=== PATIENT | female | born 2000 | race Caucasian/White ===

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

== ENCOUNTER 2020-07-17 11:42 | Emergency (ER) | payer MEDICAID, OTHER ==
[~2020-07-17] VITALS: Ht 170.2 cm; Wt 75.7 kg
[~2020-07-17 11:42] MED LIST changes: +FLUO40CA6 PO
[2020-07-17 11:51] VITALS: BP 126/98
--- NOTE | 2020-07-17 11:53 | NUR ---
Patient ambulated to lobby.
[2020-07-17 14:30] VITALS: BP 115/90
--- NOTE | 2020-07-17 14:30 | NUR ---
Patient discharged with v/s stable. Written and verbal after care instructions given and explained. Patient alert, oriented and verbalized understanding of instructions. Ambulatory with steady gait. All questions addressed prior to discharge. ID band removed. Patient advised to follow up with PMD. Rx of Atarax 25mg given. Patient educated on indication of medication including possible reaction and side effects. Opportunity to ask questions provided and answered.
== END 2020-07-17 14:30 | disposition home or self-care (01) ==
LOC: MED 11:42
DX: F41.0 Panic disorder [episodic paroxysmal anxiety] (principal); J45.909 Unspecified asthma, uncomplicated; Z79.899 Other long term (current) drug therapy; Z90.49 Acquired absence of other specified parts of digestive tract
CPT/HCPCS: 99283

== ENCOUNTER 2021-02-04 20:16 | Emergency (ER) | payer MEDICAID ==
[~2021-02-04] VITALS: Ht 165.1 cm; Wt 87.1 kg
--- NOTE | 2021-02-04 20:16 | NUR ---
CRUZ SYKES. TAKEN TO BED 1
[2021-02-04 20:24] VITALS: BP 137/61
--- NOTE | 2021-02-04 20:28 | NUR ---
PT MOVED TO ER BED 5
[2021-02-04] MEDS ORDERED: ONDANSETRON 4 MG/2 ML VIAL IVP ONE (20:30)
[2021-02-04] MEDS ORDERED: LORazepam 2 MG/ML VIAL IM ONE (20:30)
[2021-02-04] MEDS ORDERED: HALOPERIDOL IM 5 MG/ML VIAL IM ONE (20:30)
[2021-02-04] MEDS ORDERED: HALOPERIDOL IM 5 MG/ML VIAL ONE (20:33)
[2021-02-04] MEDS ORDERED: LORazepam 2 MG/ML VIAL ONE (20:33)
[2021-02-04] MEDS ORDERED: ONDANSETRON 4 MG/2 ML VIAL ONE (20:35)
--- NOTE | 2021-02-04 20:40 | NUR ---
PATIENT PLACED ON A 5150 HOLD BY CORY PRATT
--- NOTE | 2021-02-04 20:40 | NUR ---
20 YO/F BIBA S/P "STATING SHE WAS DYING" PER PD. PATIENT REPORTS SHE DOES NOT WANT TO TALK AT THIS TIME. UNABLE TO COMPLETE ASSESSMENT AT THIS TIME. BREATHING EVEN AND UNLABORED, CHEST EXPANSION SYMMETRICAL. PATIENT SITTING IN BED, LOCKED IN LOWEST POSITION X2 SIDE RAILS UP FOR PATIENT SAFETY. NAD NOTED, WILL CONTINUE TO MONITOR. PMH: UNABLE TO OBTAIN ALLERGIES: UNABLE TO OBTAIN
[2021-02-04] MEDS ORDERED: NACL 0.9% 1,000 ML IV ONE (20:45)
[2021-02-04 20:46] LABS: BASOPHILS # (AUTO) 0.1 K/uL (0.00-0.22); BASOPHILS % (AUTO) 1.5 % (0.0-2.0); EOSINOPHILS # (AUTO) 0.1 K/uL (0-0.4); EOSINOPHILS % (AUTO) 1.6 % (0.0-4.0); HEMATOCRIT 43.9 % (36-48); HEMOGLOBIN 14.7 g/dL (12.0-16.0); LYMPHOCYTES # (AUTO) 1.9 K/uL (2.5-16.5); MEAN CORPUSCULAR HEMOGLOBIN 30 pg (27-31); MEAN CORPUSCULAR HGB CONC 34 g/dL (33-37); MEAN CORPUSCULAR VOLUME 90.1 fL (80-94); MONOCYTES # (AUTO) 0.4 K/uL (0.8-1.0); MONOCYTES % (AUTO) 7.3 % (1.7-9.3); NEUTROPHILS # (AUTO) 3.4 K/uL (1.8-7.7); NEUTROPHILS % (AUTO) 57.6 % (42.2-75.2); PLATELET COUNT (AUTO) 432 K/uL (140-450); RED BLOOD CELL COUNT(AUTO) 4.87 MIL/uL (4.20-5.40); RED CELL DISTRIBUTION WIDTH 13.3 % (11.6-13.7); WHITE BLOOD COUNT (AUTO) 5.9 K/uL (4.5-11.0)
[2021-02-04 20:56] LABS: ANION GAP 18.4 (8-16); CARBON DIOXIDE 23.1 mmol/L (21-32); CREATININE 0.6 mg/dL (0.6-1.3); POTASSIUM 3.5 mmol/L (3.5-5.1)
--- NOTE | 2021-02-04 21:28 | NUR ---
Covid and urine sample collected and walked to lab per Spike GOMEZ.
--- NOTE | 2021-02-04 21:30 | NUR ---
Patient cooperative to patient care treatment, but will not verbally provide information at this time.
[2021-02-04 22:11] LABS: APPEARANCE,URINE CLEAR (CLEAR); BILIRUBIN,URINE NEGATIVE (NEGATIVE); BLOOD, URINE TRACE-I (NEGATIVE); COLOR,URINE YELLOW (YELLOW); LEUKOCYTE ESTERASE ,URINE NEGATIVE (NEGATIVE); NITRITE, URINE NEGATIVE (NEGATIVE); UGLUCOSE NEGATIVE (NEGATIVE)
[2021-02-04 22:18] LABS: RBC,URINE 0-5 /HPF (0-5); WBC,URINE 0-5 /HPF (0-5)
[2021-02-04 22:39] LABS: BARBITURATE, URINE NEGATIVE ng/ml (NEG <=200); BENZODIAZEPINE, URINE NEGATIVE ng/mL (NEG <=200); CANNABINOID, URINE POSITIVE ng/mL (NEG <=50); COCAINE, URINE NEGATIVE ng/mL (NEG <=300); OPIATE, URINE NEGATIVE ng/mL (NEG <=2000); PHENCYCLIDINE SCREEN,URINE NEGATIVE ng/mL (NEG <=25)
--- NOTE | 2021-02-04 23:00 | NUR ---
Consent received per patient for mother and father to receive any of her health/medical information.
--- NOTE | 2021-02-04 23:10 | NUR ---
Spoke w patient's mother in regards to patient status.
--- NOTE | 2021-02-05 00:25 | NUR ---
Patient laying in bed L lateral position, HOB slightly elevated, eyes closed, breathing even and unlabored. VSS. NAD noted, will continue to monitor.
--- NOTE | 2021-02-05 03:05 | NUR ---
Patient laying supine in bed, locked in lowest position, x2 side rails up for patient safety. Eyes closed, breathing even and unlabored. NAD
--- NOTE | 2021-02-05 05:00 | NUR ---
Patient resting in be eyes closed L lateral position, breathing even and unlabored. NAD noted, will continue to monitor.
--- NOTE | 2021-02-05 07:06 | NUR ---
Report and continuation of care received from AFUA Mccray.
--- NOTE | 2021-02-05 07:06 | NUR ---
Report given to AFUA Shepard for transfer of care.
--- NOTE | 2021-02-05 07:14 | NUR ---
Marcel garza in [facility] - 02/05/21 at 0722 by MELLY Report and continuation of care received from AFUA Mccray.
--- NOTE | 2021-02-05 07:23 | NUR ---
Patient resting comfortably in low-fowlers. Patient provided with water cup and warm blanket per request. All needs met.
--- NOTE | 2021-02-05 08:10 | NUR ---
Breakfast meal tray provided. 2 additional orange juices provided per request.
--- NOTE | 2021-02-05 08:14 | NUR ---
Telepsychiatry consultation ordered as requested by Dr. Mckeon.
--- NOTE | 2021-02-05 08:24 | NUR ---
Patient completed 80% of meal tray. All needs met.
--- NOTE | 2021-02-05 08:35 | NUR ---
Patient resting comfortably in low-fowlers. Patient cooperative with answering questions regarding suicide severity. athletic monitor remains in place. Bed locked in lowest position, side rails x 2 for pt safety.
--- NOTE | 2021-02-05 09:35 | NUR ---
Patient resting comfortably in low-fowlers. Patient cooperative with answering questions regarding suicide severity. panel monitor remains in place. Bed locked in lowest position, side rails x 2 for pt safety.
--- NOTE | 2021-02-05 10:30 | NUR ---
Note kayla in ED - 02/05/21 at 1153 by MELLY Patient resting comfortably in low-fowlers. Patient cooperative with answering questions regarding suicide severity. learning center coordinator remains in place. Bed locked in lowest position, side rails x 2 for pt safety.
--- NOTE | 2021-02-05 10:30 | NUR ---
Patient resting comfortably in low-fowlers. dynamics ax developer remains in place. Bed locked in lowest position, side rails x 2 for pt safety.
--- NOTE | 2021-02-05 10:40 | NUR ---
Patient on video call via Telepsychiatry. Patient awake, cooperative and answering questions.
--- NOTE | 2021-02-05 11:00 | NUR ---
Cleared from 5150 hold.
--- NOTE | 2021-02-05 11:11 | NUR ---
Contacted Niki from [place]; while on phone call advised that patient will be taken off 5150 hold. Niki made aware to cancel.
--- NOTE | 2021-02-05 11:52 | NUR ---
Patient resting comfortably in low-fowlers. Patient cooperative with answering questions regarding suicide severity. reservoir caretaker remains in place. Bed locked in lowest position, side rails x 2 for pt safety.
--- NOTE | 2021-02-05 11:56 | NUR ---
Contacted Rebecca Phipps (mother); no answer; left voicemail regarding plan to discharge patient. Left call back number to ER main.
--- NOTE | 2021-02-05 12:15 | NUR ---
Recontacted mother via telephone; call went straight to voicemail.
--- NOTE | 2021-02-05 12:24 | NUR ---
Patient laying in bed L lateral position, HOB slightly elevated, eyes closed, breathing even and unlabored. VSS. NAD noted, will continue to monitor.
--- NOTE | 2021-02-05 13:44 | NUR ---
Patient awake sitting upright in bed. Made aware of discharge plan; waiting for taxi cab at this time. Bed locked in lowest position, side rails x 1, call light in reach.
--- NOTE | 2021-02-05 13:45 | NUR ---
Homeless packet, snack bag, and mental health resources provided per pt request.
--- NOTE | 2021-02-05 14:30 | NUR ---
Jung arrived for package pick up.
[2021-02-05 14:39] VITALS: BP 114/47
--- NOTE | 2021-02-05 14:39 | NUR ---
Patient discharged with v/s stable. Written and verbal after care instructions given and explained. Patient verbalized understanding. Ambulatory with steady gait. All questions addressed prior to discharge. Advised to follow up with PMBrandie. Jung outside ER lobby for patient pickup.
== END 2021-02-05 14:39 | disposition home or self-care (01) ==
LOC: MED 20:16
DX: F10.129 Alcohol abuse with intoxication, unspecified (principal); Z20.822 Contact with and (suspected) exposure to COVID-19; F15.90 Other stimulant use, unspecified, uncomplicated; J45.909 Unspecified asthma, uncomplicated; Z79.899 Other long term (current) drug therapy
CPT/HCPCS: 80048; 80305; 81001; 81025; 85025; 87086; 87426; 96361; 96372; 96374; 99291; G0482; J1630; J2060; J2405; J7030; U0003

== ENCOUNTER 2021-03-19 23:55 | Emergency (ER) | payer MEDICAID ==
[~2021-03-19] VITALS: Ht 170.2 cm; Wt 90.7 kg
[2021-03-20] VITALS: BP 103/34
--- NOTE | 2021-03-20 | NUR ---
patient to chair B
--- NOTE | 2021-03-20 00:24 | NUR ---
patient to bed 6 ambulatory
--- NOTE | 2021-03-20 00:30 | NUR ---
20 y/o female pt BIBA from a [place] at [place] per [facility] patient was experiencing a panic attack. patient took unknown amounts of meth and has been drinking for the passed few days. patient experiencing chest pain. patient states, "There's a lot going on around my head. I feel depress, and I would rather . I currently live with my mom in an RV/trailer, but right now, she's in [facility]. I don't want to be homeless. It's just lack of resources. I wanted to go school, but I can't. " patient has plan to kill self reports wanting to get run over. AAOx4. VSS. pmh: gallbladder removal, tonsillectomy, depression, anxiety NKA
[2021-03-20 01:48] LABS: BASOPHILS % (AUTO) 0.5 % (0.0-2.0); EOSINOPHILS # (AUTO) 0.1 K/uL (0-0.4); EOSINOPHILS % (AUTO) 1.4 % (0.0-4.0); HEMATOCRIT 39.1 % (36-48); HEMOGLOBIN 12.9 g/dL (12.0-16.0); LYMPHOCYTES % (AUTO) 25.5 % (20.5-51.1); MEAN CORPUSCULAR HEMOGLOBIN 29 pg (27-31); MEAN CORPUSCULAR HGB CONC 33 g/dL (33-37); MEAN CORPUSCULAR VOLUME 87.7 fL (80-94); MONOCYTES # (AUTO) 0.6 K/uL (0.8-1.0); MONOCYTES % (AUTO) 7.5 % (1.7-9.3); NEUTROPHILS # (AUTO) 5.2 K/uL (1.8-7.7); NEUTROPHILS % (AUTO) 65.1 % (42.2-75.2); PLATELET COUNT (AUTO) 368 K/uL (140-450); RED BLOOD CELL COUNT(AUTO) 4.46 MIL/uL (4.20-5.40); RED CELL DISTRIBUTION WIDTH 13.8 % (11.6-13.7); WHITE BLOOD COUNT (AUTO) 7.9 K/uL (4.5-11.0)
[2021-03-20 01:57] LABS: BARBITURATE, URINE NEGATIVE ng/ml (NEG <=200); BENZODIAZEPINE, URINE NEGATIVE ng/mL (NEG <=200); CANNABINOID, URINE POSITIVE ng/mL (NEG <=50); COCAINE, URINE NEGATIVE ng/mL (NEG <=300); OPIATE, URINE NEGATIVE ng/mL (NEG <=2000); PHENCYCLIDINE SCREEN,URINE NEGATIVE ng/mL (NEG <=25)
[2021-03-20 02:19] LABS: ALBUMIN 3.5 g/dL (3.4-5.0); ANION GAP 14.6 (8-16); ASPARTATE AMINOTRANSFERASE 14 U/L (15-37); CARBON DIOXIDE 24.5 mmol/L (21-32); CHLORIDE 103 mmol/L (98-107); CREATININE 0.5 mg/dL (0.6-1.3); GFR ARICAN-AMERICAN 202 mL/min (>90); GLUCOSE 97 mg/dL (74-106); POTASSIUM 3.1 mmol/L (3.5-5.1); SODIUM SERUM 139 mmol/L (136-145); TOTAL BILIRUBIN 0.6 mg/dL (0.0-1.0); UREA NITROGEN, BLOOD 9 mg/dL (7-18)
[2021-03-20 02:20] LABS: SALICYLATE < 2.8 mg/dL (2.8-20.0)
[2021-03-20 02:21] LABS: ACETAMINOPHEN < 0.5 ug/ml (10-30)
--- NOTE | 2021-03-20 03:05 | NUR ---
TELEPSYCH REQUEST INITIATED CONNECT ID [id number]
--- NOTE | 2021-03-20 05:30 | NUR ---
RECEIVED A CALL FROM DR. CARLOS, TELEPSYCH DOCTOR. GATHERED INFORMATION FOR THE PT
--- NOTE | 2021-03-20 05:38 | NUR ---
PT TAKING TO TELEPSYCH DOCTOR
--- NOTE | 2021-03-20 07:13 | NUR ---
GIVEN REPORT TO CYN CAAL, FOR CONTINUITY OF CARE
--- NOTE | 2021-03-20 07:17 | NUR ---
REPORT RECEIVED FROM AFUA COOLEY. TRANSFER OF CARE RECEIVED
[2021-03-20] MEDS ORDERED: POTASSIUM CHLORIDE 10 MEQ TABER PO ONE (07:30)
--- NOTE | 2021-03-20 07:30 | NUR ---
PT CURRENTLY RESTING WITH EYES CLOSED AND LIGHTS OFF. EQUAL CHEST RISE AND FALL NOTED. BED IN LOWEST POSITION WITH SIDERAIL X2 UP. VITAL SIGNS STABLE. WILL CONTINUE TO MONITOR
--- NOTE | 2021-03-20 07:49 | NUR ---
POLICE BEDSIDE SPEAKING WITH PT
--- NOTE | 2021-03-20 07:57 | NUR ---
PER PD "PT DOES NOT CURRENTLY MEET CRITERIA FOR A 5150 HOLD AT THIS TIME."
[2021-03-20 08:46] VITALS: BP 113/61
--- NOTE | 2021-03-20 08:47 | NUR ---
Patient discharged with v/s stable. Written and verbal after care instructions given and explained. Patient verbalized understanding. Ambulatory with steady gait. All questions addressed prior to discharge. Advised to follow up with PMD. PATIENT WAS PROVIDED WITH HOMELESS PACKET, MENTAL HEALTH RESOURCE PACKET, FOOD, AND BUS PASS
[2021-03-20] MEDS ORDERED: traZODone 50 MG TAB PO PRN (18:30)
[2021-03-20] MEDS ORDERED: HYDROXYZINE HYDROCHLORIDE 25 MG TAB PO SCH (21:00)
[2021-03-21] MEDS ORDERED: SERTRALINE 50 MG TAB PO SCH (09:00)
== END 2021-03-20 08:47 | disposition home or self-care (01) ==
LOC: MED 23:55
DX: E87.6 Hypokalemia (principal); Z20.822 Contact with and (suspected) exposure to COVID-19; R45.851 Suicidal ideations; J45.909 Unspecified asthma, uncomplicated; Z79.899 Other long term (current) drug therapy
CPT/HCPCS: 80053; 80305; 81002; 81025; 82948; 85025; 87426; 93005; 99284; G0480; G0482; U0003

== ENCOUNTER 2021-05-05 06:02 | Emergency (ER) | payer MEDICAID ==
[~2021-05-05] VITALS: Ht 170.2 cm; Wt 77.1 kg
[2021-05-05 06:02] VITALS: BP 124/75
--- NOTE | 2021-05-05 06:02 | NUR ---
YADIRA SYKES FROM HOME, PT. IS A 20 Y/O FEMALE THAT CAME INTO ED WITH C/O OF SOB. PER EMS, PT. HAS FELT SOB FOR 1 DAY NOW. PT. ADMITS TO TAKING 5 PUFFS OF ALBUTEROL INHALER AND SMOKING CIGARETTES TODAY. PT. STATES SHE HAS PAIN WHEN TALKING AND BREATHING IN. DENIES N/V/D; SKIN IS PINK/WARM/DRY; AAOX4 WITH EVEN AND STEADY GAIT; HR EVEN AND REGULAR; VSS; PATIENT POSITIONED FOR COMFORT; HOB ELEVATED; BEDRAILS UP X2; BED DOWN. ER MD MADE AWARE OF PT STATUS. PMH: ASTHMA ALLERGIES: NKA
--- NOTE | 2021-05-05 06:02 | NUR ---
PT BROUGHT TO BED 7 VIA ONEL GONZALEZ
--- NOTE | 2021-05-05 06:39 | NUR ---
XRAY AT BEDSIDE
--- NOTE | 2021-05-05 07:00 | NUR ---
NICOLAS BARRETO AT BEDSIDE
--- NOTE | 2021-05-05 07:05 | NUR ---
Dr. Isaac is evaluating patient at bedside
--- NOTE | 2021-05-05 07:07 | NUR ---
Report and continuation of care received from AFUA Jurado.
--- NOTE | 2021-05-05 07:07 | NUR ---
GAVE REPORT TO AFUA BEAVERS. TRANSFER OF CARE AT THIS TIME.
--- NOTE | 2021-05-05 07:10 | NUR ---
Patient ambulated to restroom with steady/even gait.
--- NOTE | 2021-05-05 07:21 | NUR ---
Patient spent >10 minutes in restroom; checked up on patient who states "I forgot to pee into the cup." Patient ambulated back onto bed provided new gown. front desk monitor in place. Dr. Isaac made aware of no UA. Bed locked in lowest position, side rails x 1.
--- NOTE | 2021-05-05 07:36 | NUR ---
Patient resting in position of comfort. States SOB at this time. SpO2 100% on room air RR @ 24 even/unlabored.
[2021-05-05 07:45] VITALS: BP 115/72
--- NOTE | 2021-05-05 07:45 | NUR ---
Patient discharged with v/s stable. Written and verbal after care instructions given and explained. Patient verbalized understanding. Ambulatory with steady gait. All questions addressed prior to discharge. Advised to follow up with PMD.
== END 2021-05-05 07:45 | disposition home or self-care (01) ==
LOC: MED 06:02
DX: F41.9 Anxiety disorder, unspecified (principal); F32.9 Major depressive disorder, single episode, unspecified; J45.909 Unspecified asthma, uncomplicated
CPT/HCPCS: 71045; 99283; Q0092

== ENCOUNTER 2021-06-13 12:44 | Emergency (ER) | payer MEDICAID ==
[~2021-06-13] VITALS: Ht 154.9 cm; Wt 65.8 kg
[2021-06-13 13:05] VITALS: BP 124/82
--- NOTE | 2021-06-13 14:00 | NUR ---
pt c/o cough, nausea sob x2 hours. O2SAT 99%.
[2021-06-13] MEDS ORDERED: ALBUTEROL SULFATE/IPRATROPIU 3 ML SOL IH ONE (14:15)
--- NOTE | 2021-06-13 14:22 | NUR ---
COVID PCR SWAB DONE.
[2021-06-13 14:32] VITALS: BP 124/82
--- NOTE | 2021-06-13 14:32 | NUR ---
Note kayla in EDM - 06/13/21 at 1527 by [facility] RT CALLED PT FOR BREATHING TREATMENT AND X RAY. NO SHOW.PATIENT LEFT WITHOUT BEING SEEN BY NAVIN RUFF. NO FURTHER CARE PROVIDED FOR PATIENT.
--- NOTE | 2021-06-13 14:32 | NUR ---
RT CALLED PT FOR BREATHING TREATMENT AND X RAY. PATIENT ELOPED FROM FACILITY. DISCHARGE INSTRUCTIONS NOT GIVEN TO PATIENT. NAVIN RUFF NOTIFIED.
== END 2021-06-13 14:32 | disposition left against medical advice (07) ==
LOC: MED 12:44
DX: R05.9 Cough, unspecified (principal); R09.81 Nasal congestion; R06.02 Shortness of breath; Z20.822 Contact with and (suspected) exposure to COVID-19
CPT/HCPCS: 99284; U0003

== ENCOUNTER 2021-09-10 20:01 | Emergency (ER) | payer MEDICAID ==
[~2021-09-10] VITALS: Ht 172.7 cm; Wt 97.1 kg
--- NOTE | 2021-09-10 20:08 | NUR ---
PT TAKEN TO BED 5
[2021-09-10 20:15] VITALS: BP 154/82
--- NOTE | 2021-09-10 20:23 | NUR ---
Dr. Mirza examining patient.
[2021-09-10 20:25] VITALS: BP 154/82
--- NOTE | 2021-09-10 20:25 | NUR ---
PATIENT ELOPED FROM FACILITY. DISCHARGE INSTRUCTIONS NOT GIVEN TO PATIENT. DR. MAURO AWARE. PT WAS EVALUATED BY ER MD AT BEDSIDE. PT EXPRESSED DESIRE TO LEAVE, AFTER INFORMING PT OF POSSIBLE RISKS PT ELOPED. WRISTBAND REMOVED.
== END 2021-09-10 20:25 | disposition left against medical advice (07) ==
LOC: MED 20:01
DX: F15.10 Other stimulant abuse, uncomplicated (principal); F41.9 Anxiety disorder, unspecified; F32.9 Major depressive disorder, single episode, unspecified
CPT/HCPCS: 93005; 99281; 99283